=== PATIENT | female | born 1985 | race Caucasian/White ===

== ENCOUNTER 2017-10-24 20:13 | Emergency (ER) | payer SELFPAY ==
--- NOTE | 2017-10-24 20:41 | ED Physician Documentation ---
Lower Extremity Injury - HISTORIAN Historian: patient, friend - [facility] Chief Complaint: Lower Extremity Injury Additional Information: ANKLE TWIST FALL APPROX 1900HRS Where: other ([place] [place]) Context: fall, twist, wearing shoes Associated Symptoms:: tingling, swelling, snapping sensation. denies: numbness distally, unable to bear weight Modifying Factors:: pain on movement - ROS CONST: no problems CVS/RESP: none GI/: denies: problems urinating, nausea, vomiting MS/SKIN/LYMPH: none NEURO: denies: headache, head injury, anxiety, depression - PAST HX Past History: none Immunizations: UTD Allergies/Adverse Reactions: Allergies Allergy/AdvReac Type Severity Reaction Status Date / Time Sulfa (Sulfonamide Allergy Verified 10/24/17 20:25 Antibiotics) Home Medications: Ambulatory Orders Medication Instructions Recorded NK [NK] 10/24/17 - SOCIAL HX Smoking History: non-smoker Alcohol Use: occasionally Drug Use: none - FAMILY HX Family History: no significant history - VITAL SIGNS Vital Signs: Vital Signs Temp Pulse Resp BP Pulse Ox 98.2 F 89 22 139/74 97 10/24/17 20:26 10/24/17 20:26 10/24/17 20:26 10/24/17 20:26 10/24/17 20:26 - REVIEWED ASSESSMENTS Nursing Assessment Reviewed: Yes Vitals Reviewed: Yes ED Results Lab/Radiology - Orders Orders: ED Orders Category Date Time Status ANKLE 3 VIEWS OR MORE [RAD] Stat Exams 10/24/17 Ordered URINE HCG Stat Lab 10/24/17 Uncollected Lower Extremities Injury Phy - Physical Exam General Appearance: mild distress Ligaments: pain on lateral stress Gait: limited by pain Neuro/Vascular/Tendon: no vascular compromise, motor nml, sensation nml. No: abnml color, abnml warmth, abnml cap refill, pulse deficit, sensory deficit, motor deficit Head/ENT: nml inspection Neck/Back: nml inspection Resp/CVS: chest non-tender, breath sounds nml, heart sounds nml, no resp. distress, lungs clear, reg. rate & rhythm Abdomen: non-tender Discharge Clincal Impression: ankle sprain rt lat ligt Referrals: Primary Doctor,No [Primary Care Provider] - 2 Days Comments: consuelo wrap cane or crutch min wt bearing tylenol then ibu prn pain Condition: Good Decision to Admit: NO Decision Time: 21:23
[2017-10-24 20:42] VITALS: BP 139/74
--- NOTE | 2017-10-25 07:01 | Diagnostic Imaging Report ---
NIKKO ALBERTS [facility] [address] [facility] [address] [address] Report Submission Date: Oct 24, 2017 9:08:05 PM CDT Patient Study Name: AISHA JOYCE Date: Oct 24, 2017 8:41:28 PM CDT Modality Type: DX Gender: F Description: LOWER EXTREMITY : 83 Institution: [facility] Physician: NIKKO ALBERTS 3 views right ankle Clinical history: Right ankle pain Findings: No acute fracture dislocation is identified. The alignment is normal. Soft tissues are unremarkable. Small plantar calcaneal spur is noted. Impression: Negative Electronically signed on Oct 24, 2017 9:08:05 PM CDT by: Elton JORGE
== END 2017-10-24 21:24 ==
LOC: ED 20:13
DX: S93.401A Sprain of unspecified ligament of right ankle, initial encounter (principal); W19.XXXA Unspecified fall, initial encounter; Y92.513 Shop (commercial) as the place of occurrence of the external cause; Y93.9 Activity, unspecified; Y99.9 Unspecified external cause status
CPT/HCPCS: 73610; 81025; 99283

== ENCOUNTER 2018-05-23 11:32 | Outpatient (CLI) | payer OTHER ==
[2018-05-23 12:31] LABS: eGFR (Non-African) > 60
[2018-05-23 12:33] LABS: MEAN CORPUSCULAR HEMOGLOBIN 28.8 pg (28.0-34.0); MONOCYTES % 4.5 % (0.0-11.0)
[2018-05-23 12:34] LABS: BASOPHILS % 0.9 (0.0-1.5); EOSINOPHILS % 2.7 % (0.0-6.8); NEUTROPHILS # 8.1 # k/uL (1.4-7.7)
== END 2018-05-23 11:34 ==
LOC: LAB 11:32
PROVIDERS: ATTEND Family Medicine
DX: R42 Dizziness and giddiness (principal)
CPT/HCPCS: 36415; 80053; 85025

== ENCOUNTER 2018-05-27 19:45 | Emergency (ER) | payer OTHER ==
--- NOTE | 2018-05-27 19:57 | ED Physician Documentation ---
Chest Pain - HISTORIAN Historian: patient - HPI Stated Complaint: chest /abdomen pain x 2 hours Chief Complaint: Chest Pain Onset: hours (2) Timing: sudden onset Duration: constant Last known Well Date: 05/27/18 Last Known Well Time: 18:00 Last known Well Code/Unknown Code: Unknown Context: rest Severity: mild Quality: stabbing Chest Pain Radiation: no radiation Chest Pain Signs/Symptoms: nausea, vomiting. denies: diaphoresis, cool extremities, dizziness, dyspnea, tachypnea Worsened By: nothing Relieved By: nothing Further Comments: yes (She reports about two hours ago she started to have chest pain - the pain was under her breasts. She thought it was her underwire of her bra cutting her - she also had some chest pain (she reports she has had this before and she just got over influenza a) she states she took ibuprofen and she had no relief. She points the pain to directly under both breasts. She does not feel any activity makes the pain better or worse. No pain with palpation on chest. Pain with palpation on RUQ and epigastric area. Denies any increased pain with deep breathing. She denies any shortness of air. she did eat prior to pain. Normal bowel movement this am. No fever.) - ROS CONST: none SKIN/ENDO: none NEURO/PSYCH: none. denies: headache - PAST HX [place] risk factors: no pertinent history DVT/PE Risk Factors: none TAD/AAA risk factors: none Neuro deficit: none GI disease: none Lung disease: none Surgeries/Procedures: none Immunizations: UTD Allergies/Adverse Reactions: Allergies Allergy/AdvReac Type Severity Reaction Status Date / Time Sulfa (Sulfonamide Allergy Verified 05/27/18 20:00 Antibiotics) Home Medications: Ambulatory Orders Medication Instructions Recorded NK 10/24/17 - SOCIAL HX Smoking History: non-smoker Alcohol Use: none Drug Use: none - FAMILY HX Family HX: none - VITAL SIGNS Vital Signs: Vital Signs Temp Pulse Resp BP Pulse Ox 139/74 10/24/17 21:24 - REVIEWED ASSESSMENTS Nursing Assessment Reviewed: Yes Vitals Reviewed: Yes Progress - Progress Progress: 2009: vomiting - zofran given. DG 2011: Improved nausea DG 2044: nausea is returned and pain increased DG 2104: discussed current results. She is asking for med for pain. DG 2134: states pain is improved "a little" DG 2235: discussed results. Pain has improved. Nausea has improved. Will continue with plan. She is agreeable DG 2257: She states pain is resolved. Nausea is improved. Discussed plan and she and are agreeable. Follow up with Dr Lozano early next week DG ED Results Lab/Radiology - Radiology Radiology Impressions: AP chest Clinical history: Chest pain. Vomiting. Findings: Examination of the chest single AP view demonstrates the lungs to be hypoventilated but clear. Cardiac silhouette is prominent. Monitor leads superimpose the chest. Impression: 1. Hypoventilation. 2. No active disease. Electronically signed on May 27, 2018 9:14:29 PM CORPORATE GENERAL MANAGER by: Colby Diez CT abdomen and pelvis with contrast Clinical history: Upper abdominal pain for 4 hr. Vomiting. Contrast administered: 80 mL of Omnipaque. Technique: CT of the abdomen is performed with intravenous infusion of contrast. Sagittal and coronal reconstructions were performed by the technologist. Findings: There are discoid changes in right lung base. The visualized lung bases are otherwise clear. The liver is diffusely hypodense consistent with hepatic steatosis. There is no focal abnormality in the liver or spleen. Gallbladder is normally distended. There is no pancreatic or adrenal abnormality. The kidneys demonstrate symmetric enhancement. There is no retroperitoneal mass or significant adenopathy. Appendix is visualized and is within normal limits. Gas and stool are present in the colon. Bladder is unremarkable. Uterus and adnexal structures are within normal limits. There are bilateral ovarian follicles. Spondylitic changes are seen in the lumbar vertebrae with narrowing of the L5-S1 disc space and minimal osteophyte formation. Impression: 1. Hepatic steatosis. 2. 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 3. Negative appendix. 4. Lumbar spondylosis. Electronically signed on May 27, 2018 10:25:16 PM CORPORATE GENERAL MANAGER by: Colby Diez Chest Pain Physical Exam - EXAM General Appearance: no acute distress, alert EENT: eye inspection normal, no signs of dehydration Neck: nml inspection Respiratory: no resp. distress, chest non-tender, nml breath sounds CVS: reg. rate & rhythm Abdomen: soft, normal bowel sounds, no distension, non-tender Skin: warm/dry, normal color Extremities: non-tender, no edema Neuro: oriented X3 Discharge Clincal Impression: Atelectasis of right lung Abdominal pain Qualifiers: Abdominal location: unspecified location Qualified Code(s): R10.9 - Unspecified abdominal pain Referrals: [place] Lozano MD [Primary Care Provider] - 2 Days Comments: 1. Ventolin take 2 puffs every 4 hours as needed for cough 2. Medrol dose pack - as directed 3. Zofran 4 mg take 1 by mouth every 8 hours as needed for nausea 4. Tramadol 50 mg take 1 by mouth every 8 hours as needed for pain 5. Deep breathe and cough every 2 hours 6. Increase fluids 7. Follow up with Dr Lozano Tuesday 8. Return to ER for any concerns Condition: Stable Disposition: 01 HOME, SELF-CARE Decision to Admit: NO Date of Decison to Admit: 05/27/18 Decision Time: 23:10
[2018-05-27] MEDS ORDERED: ONDANSETRON HCL/PF 4 MG/ 2ML VIAL ONE (20:04)
[2018-05-27] MEDS ORDERED: ONDANSETRON HCL/PF 4 MG/ 2ML VIAL IVP ONE (20:04)
[2018-05-27] MEDS ORDERED: 0.9 % SODIUM CHLORIDE 1,000 ML IV ONE (20:05)
[2018-05-27] MEDS ORDERED: MAG HYDROX/ALUMINUM HYD/SIMETH 30 ML, Lidocaine 2%Visc 15ml 20 MG, PHENOBARB-HYOSCYAM-A... PO ONE ×3 (20:41)
[2018-05-27] MEDS ORDERED: MAGNESIUM HYDROXIDE 2,400 MG/30 ML UDC PO ONE (20:50)
[2018-05-27] MEDS ORDERED: LIDOCAINE HCL 2% VISC. ORAL 300MG/15ML UDC ONE (20:50)
[2018-05-27] MEDS ORDERED: PROMETHAZINE HCL 25 MG in 0.9 % SODIUM CHLORIDE 50 ML IV ONE (21:01)
[2018-05-27] MEDS ORDERED: KETOROLAC TROMETHAMINE 30 MG/1ML VIAL IVP ONE (21:05)
--- NOTE | 2018-05-27 21:32 | Diagnostic Imaging Report ---
MARCOS DANGELO [facility] [address] [address] Report Submission Date: May 27, 2018 9:14:29 PM OLIVE PACKER Patient Study Name: AISHA JOYCE Date: May 27, 2018 8:49:09 PM OLIVE PACKER Modality Type: DX Gender: F Description: CHEST 1VIEW : 83 Institution: [facility] Physician: MARCOS DANGELO AP chest Clinical history: Chest pain. Vomiting. Findings: Examination of the chest single AP view demonstrates the lungs to be hypoventilated but clear. Cardiac silhouette is prominent. Monitor leads superimpose the chest. Impression: 1. Hypoventilation. 2. No active disease. Electronically signed on May 27, 2018 9:14:29 PM OLIVE PACKER by: Colby JORGE
[2018-05-27] MEDS ORDERED: methylPREDNISolone SOD SUCC 125 MG/2 ML VIAL ONE (21:49)
--- NOTE | 2018-05-27 22:28 | Diagnostic Imaging Report ---
MARCOS DANGELO [facility] [address] [facility] [address], [place]. [address] Report Submission Date: May 27, 2018 10:25:16 PM CATERPILLAR OPERATOR Patient Study Name: AISHA JOYCE Date: May 27, 2018 9:57:35 PM CATERPILLAR OPERATOR Modality Type: CT\SR Gender: F Description: CT ABD PELVIS W/ CON : 83 Institution: [facility] Physician: MARCOS DANGELO CT abdomen and pelvis with contrast Clinical history: Upper abdominal pain for 4 hr. Vomiting. Contrast administered: 80 mL of Omnipaque. Technique: CT of the abdomen is performed with intravenous infusion of contrast. Sagittal and coronal reconstructions were performed by the technologist. Findings: There are discoid changes in right lung base. The visualized lung bases are otherwise clear. The liver is diffusely hypodense consistent with hepatic steatosis. There is no focal abnormality in the liver or spleen. Gallbladder is normally distended. There is no pancreatic or adrenal abnormality. The kidneys demonstrate symmetric enhancement. There is no retroperitoneal mass or significant adenopathy. Appendix is visualized and is within normal limits. Gas and stool are present in the colon. Bladder is unremarkable. Uterus and adnexal structures are within normal limits. There are bilateral ovarian follicles. Spondylitic changes are seen in the lumbar vertebrae with narrowing of the L5-S1 disc space and minimal osteophyte formation. Impression: 1. Hepatic steatosis. 2. 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 3. Negative appendix. 4. Lumbar spondylosis. Electronically signed on May 27, 2018 10:25:16 PM CATERPILLAR OPERATOR by: Colby JORGE
[2018-05-27] MEDS ORDERED: IPRATROPIUM/ALBUTEROL SULFATE 3 ML AMPUL.NEB NEB ONE ×2 (22:34→22:35)
[2018-05-27] MEDS ORDERED: ALBUTEROL 90MCG/PUFF INHALER IH ONE ×2 (22:56→23:14)
[2018-05-27] MEDS ORDERED: methylPREDNISolone SOD SUCC 125 MG/2 ML VIAL IVP ONE (23:11)
[2018-05-27] MEDS ORDERED: traMADol HCL 50 MG TABLET PO ONE (23:12)
[2018-05-27 23:23] VITALS: BP 132/68
[2018-05-28 10:41] LABS: APPEARANCE,URINE CLEAR (CLEAR); COLOR,URINE YELLOW (YELLOW)
[2018-05-28 10:42] LABS: OCCULT BLOOD,URINE TRACE-INTACT (NEGATIVE)
[2018-05-28 10:43] LABS: MEAN CORPUSCULAR HEMOGLOBIN 28.9 pg (28.0-34.0); MONOCYTES % 6.6 % (0.0-11.0)
[2018-05-28 10:44] LABS: BASOPHILS % 1.1 (0.0-1.5); EOSINOPHILS % 2.4 % (0.0-6.8); NEUTROPHILS # 8.3 # k/uL (1.4-7.7)
[2018-05-28 10:45] LABS: eGFR (Non-African) > 60
== END 2018-05-27 23:21 | disposition home or self-care (01) ==
LOC: ED 19:45
DX: R10.10 Upper abdominal pain, unspecified (principal); J98.11 Atelectasis
CPT/HCPCS: 36415; 71045; 74177; 80053; 81002; 82553; 84484; 84703; 85025; 87086; 94640; 96374; 96375; 99284; J1885; J2405; J2550; J2930; Q9967; A9270-GY; J7030; S1016